=== PATIENT | male | born 1960 | race Caucasian/White ===

== ENCOUNTER 2019-12-19 08:00 | Outpatient (CLI) | payer OTHER, SELFPAY ==
--- NOTE | 2019-12-27 16:22 | SLEEP_ITS ---
Split Night Sleep Study DATE OF STUDY: 12/19/2019 ORDERING PHYSICIAN: Alie Merino M.D. REASON FOR THIS STUDY: Snoring, hypersomnolence. HISTORY: This patient is a 59-year-old male, 67 inches tall, weighing 205 pounds with a body mass index of 32.1. He has a history of loud snoring, especially on his back. He sleeps on his right side only. He has significant nasal drainage. Normal bedtime is around 12 midnight, falling asleep quickly, waking between 6 and 7 in the morning. He does have dreams at night. He does not have problems with leg kicking or restless legs symptoms. He wakes at least once at night to use the bathroom. He takes a nap on the weekends between his morning shift and his afternoon shift. 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 He has 1 cup of coffee in the morning and a soda with dinner on occasion. He has a deviated septum on the right side. He occasionally awakens from sleep feeling short of breath. He rarely awakens at night with heartburn. He rarely gasps for breath at night. He rarely sweats excessively at night. He does not have palpitations at night. He frequently falls asleep during the day occasionally and involuntarily almost never while driving. He does not have loss of muscle tone with strong emotion. He rarely has difficulty at work due to excessive sleepiness. He does not feel paralyzed on waking or falling asleep. Does not have vivid dreamlike scenes upon awakening or falling asleep and he is never afraid to go to sleep. He rarely remembers his dreams. He rarely feels sad, depressed, or anxious. He occasionally has muscular tension. He rarely notices parts of his body jerking. He rarely has leg pain at night. He does not grind his teeth at night. He rarely is bothered by pain during the day and never is awakened by pain at night. He rarely wakes up feeling stiff in the morning with sore achy muscles or pain in the neck or spine. His present work situation is satisfactory. He does have daytime fatigue. He does have some problem with libido that he attributes to his loud snoring. He estimates 6 hours of sleep at night. When he does awaken at night to use the bathroom, he is not awake for very long. MEDICAL COMORBIDITIES: Hypertension, erectile dysfunction, acid reflux, arthritis, joint pain. MEDICATIONS: 1. Metoprolol 50 mg a day. 2. Amlodipine 10 mg a day. 3. Sildenafil 100 mg as needed. 4. Omeprazole 20 mg daily .. 5. Naprosyn 220 mg daily. HABITS: Used to smoke cigarettes 20 years ago. Caffeine, 1 large coffee a day. No alcohol. DESCRIPTION OF THE STUDY: On the [place] Sleepiness Scale, his score is 12. This was conducted as a split night study using the same and multiple channel system including EOG, EEG, submental EMG, EKG, nasal and oral airflow using thermistors and nasal pressure sensors, chest and abdominal belts, body position data, and pulse oximetry. The study was scored using CMS guidelines. During the baseline portion, the recording time was 121.6 minutes. Sleep time was 116 minutes. Sleep efficiency was 95.5%. Sleep latency was short, 1.5 minutes. He was prescribed Lunesta 2 mg, but it is not clear if he took it, likely did take it at the sleep lab. It was not recorded in the tech notes. His REM latency was normal 91 minutes. He had 6 awakenings and spent 4 minutes awake after sleep onset. Sleep architecture showed 9.5% stage 1 sleep, 86.2% stage 2 sleep, no stage 3 sleep, and 4.3% stage REM. He spent 44% of this portion supine. He had 1 brief REM episode lasting 5 minutes. During the baseline portion, his apnea-hypopnea index was 28.4 per CMS guidelines. All these were obstructive events. He had 31 obstructive hypopneas in th
== END 2019-12-19 08:01 | disposition home or self-care (01) ==
LOC: ANHCSM 08:01
PROVIDERS: Visit Provider Internal Medicine Critical Care Medicine
DX: G47.10 Hypersomnia, unspecified (principal); G47.33 Obstructive sleep apnea (adult) (pediatric); J31.0 Chronic rhinitis; I10 Essential (primary) hypertension; N52.9 Male erectile dysfunction, unspecified
CPT/HCPCS: 95811

== ENCOUNTER 2020-08-07 09:15 | Outpatient (CLI) | payer OTHER, SELFPAY ==
[2020-08-07 09:39] LABS: Basophils Percent Auto 0.5 % (0.2-1.2); Eosinophils Absolute Auto 0.2 K/mm3 (0-0.3); Eosinophils Percent Auto 4.2 % (0-4.4); Hematocrit 43.2 % (42.0-52.0); Hemoglobin 14.3 g/dL (14.0-18.0); Immature Granulocyte Absolute 0.02 K/mm3 (0.00-0.031); Immature Granulocyte Percent A 0.5 % (0-0.5); Lymphocytes Absolute Auto 1.55 K/mm3 (0.9-3.2); Lymphocytes Percent Auto 35.8 % (18.3-44.2); Mean Corpuscular HGB Conc 33.1 g/dl (32-36); Mean Corpuscular Hemoglobin 28.8 pg (26-34); Mean Corpuscular Volume 86.9 fl (80-100); Mean Platelet Volume 9.5 fl (7.4-10.4); Monocytes Absolute Auto 0.4 K/mm3 (0.1-0.6); Monocytes Percent Auto 10.2 % (2.6-8.5); Neutrophils Absolute Auto 2.1 K/mm3 (1.3-6.7); Neutrophils Percent Auto 48.8 % (45.5-73.1); Platelet Count Result 252 k/mm3 (150-375); Red Blood Count 4.97 M/mm3 (4.6-6.20); Red Cell Distribution Width 13.5 % (11.5-14.5); White Blood Count 4.3 K/mm3 (4.5-10.0)
[2020-08-07 11:09] LABS: Alanine Aminotransferase 26 U/L (4-50); Albumin Level 4.3 g/dL (3.5-5.1); Alkaline Phosphatase 76 U/L (38-126); Anion Gap 8 mmol/L (8-16); Aspartate Amino Transferase 24 U/L (17-59); Bilirubin,Total 0.4 mg/dL (0.2-1.3); Blood Urea Nitrogen 18 mg/dL (9-20); Calcium 9.3 mg/dL (8.4-10.2); Carbon Dioxide 28 mmol/L (22-30); Chloride 105 mmol/L (98-107); Cholesterol 150 mg/dL (0-200); Estimated Glomerular Filt Rate > 60; Glucose 107 mg/dL (75-110); HDL Direct 45 mg/dL; Potassium 4.3 mmol/L (3.4-5.0); Sodium 141 mmol/L (137-145); Triglycerides 109 mg/dL (<150)
[2020-08-07 11:34] LABS: Erythrocyte Sedimentation Rate 5 mm/hr (0-20)
[2020-08-07 11:44] LABS: LDL Cholesterol Direct 89 mg/dL
[2020-08-07 11:55] LABS: Rheumatoid Factor < 8.6 IU/ML (<12)
[2020-08-07 12:22] LABS: Prostate Specific Antigen 1.8 ng/mL (< OR = 4.0)
[2020-08-07 12:57] LABS: Folic Acid 5.4 ng/mL (2.76->20)
== END 2020-08-07 09:16 | disposition home or self-care (01) ==
PROVIDERS: PCP Internal Medicine; Visit Provider Internal Medicine
DX: R53.83 Other fatigue (principal); I10 Essential (primary) hypertension; Z12.5 Encounter for screening for malignant neoplasm of prostate; Z00.00 Encounter for general adult medical examination without abnormal findings; M79.10 Myalgia, unspecified site
CPT/HCPCS: 36415; 80053; 80061; 82607; 82746; 84153; 84443; 85025; 85652; 86038; 86430

== ENCOUNTER 2021-01-08 14:14 | Outpatient (CLI) | payer OTHER, SELFPAY | END 2021-01-08 14:15 | disposition home or self-care (01) | LOC: ANHCOVIDVC 14:14 | PROVIDERS: PCP Internal Medicine | DX: Z23 Encounter for immunization (principal) | CPT/HCPCS: 0001A; 91300 ==

== ENCOUNTER 2021-01-29 14:23 | Outpatient (CLI) | payer OTHER, SELFPAY | END 2021-01-29 14:24 | disposition home or self-care (01) | LOC: ANHCOVIDVC 14:23 | PROVIDERS: PCP Internal Medicine | DX: Z23 Encounter for immunization (principal) | CPT/HCPCS: 0002A; 91300 ==

== ENCOUNTER 2021-05-13 10:32 | Outpatient (CLI) | payer OTHER, SELFPAY ==
--- NOTE | ~2021-05-13 | XR_ITS ---
XR lumbar spine 6V w bending DATE: 05/13/2021 10:58 INDICATION: Lumbago with sciatica TECHNIQUE: AP, lateral, coned lateral lumbosacral and bilateral oblique views and flexion and extensi on lateral views COMPARISON: 09/08/2016 MRI lumbar spine FINDINGS: There is mild anterior wedge compression fracture deformity of T12, chronic, present on 09/08/2016 MRI lumbar spine examination. No recent fracture or bone destruction is evident. The lumbar pedicles are intact. No spondylolisthes is. There is minimal anterolisthesis at L4-5 secondary to degenerative change at the apophyseal joint s. There is moderately prominent loss of interspace height at L5-S1. The sacroiliac joints are intact Multiple upper pole left renal calcified calculi. IMPRESSION: Old mild anterior wedge compression fracture deformity of T12 Osteopenia Grade 1 anterolisthesis at L4-5 due to degenerative change at the apophyseal joints Moderately prominent loss of height at L5-S1 Left nephrolithiasis Reviewed, dictated and finalized at location A. IMPRESSION: Old mild anterior wedge compression fracture deformity of T12 Osteopenia Grade 1 anterolisthesis at L4-5 due to degenerative change at the apophyseal carlyn ints Moderately prominent loss of height at L5-S1 Left nephrolithiasis
== END 2021-05-13 10:33 | disposition home or self-care (01) ==
PROVIDERS: PCP Internal Medicine; Visit Provider Physician Assistant
DX: M54.41 Lumbago with sciatica, right side (principal); N20.0 Calculus of kidney; M85.88 Other specified disorders of bone density and structure, other site; M51.36 Other intervertebral disc degeneration, lumbar region
CPT/HCPCS: 72114

== ENCOUNTER 2021-07-15 14:30 | Outpatient (RCR) | payer OTHER, SELFPAY ==
--- NOTE | 2021-06-03 15:48 | PTOPEVAL ---
PHYSICAL THERAPY EVALUATION 06-03-21 Thank you for referring Johny Cruz to [facility] for the diagnosis of lumbago, with R radicular pain. He is scheduled to be seen for therapy? 0-2 x/week for 5 weeks. Johny will be out of town for one week of this timeframe. Please review, sign, date and return this plan of care NATALIA. I agree with and certify that the following plan of care is medically necessary. Referring Physician Date Attending Provider: Jan Segovia PA-C *PT Outpatient Evaluation Document 06/03/21 14:35 YARON (Rec: 06/03/21 15:48 YARON [id number]) Outpatient Past Medical History Past Medical History Source of Past Medical History Patient Neurological History Hx Neurological Disorders No Significant History Cardiovascular History Hx Hypertension Yes: med control Respiratory History Hx Sleep Apnea Yes: CPAP Gastrointestinal History Hx Gastroesophageal Reflux Disease Yes: meds Genitourinary History Hx Kidney Stones Yes Musculoskeletal History Hx Arthritis Yes: in hands- take tylenol daily to manage Hx Back Pain Yes: off/on for years Hx Orthopedic Surgery Yes: L plantar fascia surgery; R hammer toe surgery; Hx Other Musculoskeletal Disorders Yes: wearing L wrist splint- thumb pain- to have nerve study Endocrine History Hx Endocrine Disorders No Significant History HEENT History Hx Other HEENT Disorders Yes: glasses Integumentary History Hx Skin Disorders No Significant History Evaluation Information Problem Diagnosis sciatica, radicular R LE Onset 2020 Subjective Information gradual increase in back pain; Query Text:As Reported By Patient/ low back hurt some, with Family spasms, then got worse and into R leg; had steroid pack and it helped decrease pain few days, then did more activity, and back pain returned; Diagnostic Tests X-Rays For This Problem Yes: old mild ant wedge fx T12 ;osteopenia,anteriolisthesis L 4-5;decreased disc height L5-S1 MRI For This Problem No Other Tests For This Problem No Previous Treatments Previous Treatments For This Problem no PT for back Prior Level of Function Activity Level (Last 3 Months) Occupation work at [employer]; standing, cooking, [id number] occasionally, try not Hand Dominance Right Activity of Daily Living Ability Independent Indoor/Home Trey
--- NOTE | 2021-07-17 13:22 | PCPTNOTE ---
PHYSICAL THERAPY DISCHARGE 07-17-21 Attending Provider: GALLITO MayfieldC Patient:Johny Gamezpmitra Date of :1960 Johny has received a total of 10 PT sessions, from June 03 to today, for the diagnosis of lumbago with R sciatica. He called today and canceled his reevaluation appointment, left a message that he was doing well and did not need any more therapy; will continue to do his exercises. Therefore, he will be discharged at this time. The goals were not addressed. Please review, sign, date and return this discharge summary NATALIA. I have been updated about the patient's current status and I agree with discharge from the above service at this time. Referring Physician Date
== END 2021-07-17 17:44 | disposition home or self-care (01) ==
LOC: ANHPT 14:30
PROVIDERS: PCP Internal Medicine; Visit Provider Physician Assistant
DX: M54.41 Lumbago with sciatica, right side (principal)
CPT/HCPCS: 97014; 97110; 97140; 97161; G0283

== ENCOUNTER 2021-07-22 09:26 | Outpatient (CLI) | payer OTHER, SELFPAY ==
--- NOTE | 2021-07-22 11:30 | NEURO_ITS ---
Impression: # Complains of numbness of left hand. # Bilateral Carpal Tunnel Syndrome, left more than right. # No ulnar neuropathy. # Normal needle/EMG exam. Nerve Conduction Studies Anti Sensory Summary Table Stim Site NR Peak (ms) P-T Amp (?V) Site1 Site2 Delta-P (ms) Dist (cm) Piyush (m/s) Left Median Anti Sensory (2-3nd Digit) Wrist 4.2 26.6 Wrist 2-3nd Digit 4.2 14.0 33 Wrist 4.4 23.0 Wrist 2-3nd Digit 4.2 14.0 33 Right Median Anti Sensory (2-3nd Digit) Wrist 4.1 10.7 Wrist 2-3nd Digit 4.1 14.0 34 Wrist 3.9 18.6 Wrist 2-3nd Digit 4.1 14.0 34 Left Radial Anti Sensory (Base 1st Digit) Wrist 2.2 15.7 Wrist Base 1st Digit 2.2 0.0 Right Radial Anti Sensory (Base 1st Digit) Wrist 2.7 20.7 Wrist Base 1st Digit 2.7 0.0 Left Ulnar Anti Sensory (5th Digit) Wrist 2.4 42.9 Wrist 5th Digit 2.4 14.0 58 Right Ulnar Anti Sensory (5th Digit) Wrist 2.4 32.8 Wrist 5th Digit 2.4 14.0 58 Motor Summary Table Stim Site NR Onset (ms) O-P Amp (mV) Site1 Site2 Delta-0 (ms) Dist (cm) Piyush (m/s) Left Median Motor (Abd Poll Brev) Wrist 4.8 3.2 Elbow Wrist 4.9 28.0 57 Elbow 9.7 3.1 Right Median Motor (Abd Poll Brev) Wrist 3.9 3.0 Elbow Wrist 4.7 27.0 57 Elbow 8.6 2.0 Left Ulnar Motor (Abd Dig Minimi) Wrist 2.6 5.5 A Elbow Wrist 4.6 29.0 63 A Elbow 7.2 3.9 Right Ulnar Motor (Abd Dig Minimi) Wrist 2.7 4.6 A Elbow Wrist 4.8 29.0 60 A Elbow 7.5 3.6 F Wave Studies NR F-Lat (ms) L-R F-Lat (ms) Left Median (Mrkrs) (Abd Poll Brev) 29.73 1.72 Right Median (Mrkrs) (Abd Poll Brev) 28.01 1.72 Left Ulnar (Mrkrs) (Abd Dig Min) 28.00 0.64 Right Ulnar (Mrkrs) (Abd Dig Min) 27.36 0.64 EMG Side Muscle Nerve Root Ins Act Fibs Amp Dur Recrt Comment Right 1stDorInt Ulnar C8-T1 Nml Nml Nml Nml Nml Right Ext Indicis Radial (Post Int) C7-8 Nml Nml Nml Nml Nml Right Ext Digitorum Radial (Post Int) C7-8 Nml Nml Nml Nml Nml Right BrachioRad Radial C5-6 Nml Nml Nml Nml Nml Right PronatorTeres Median C6-7 Nml Nml Nml Nml Nml Right Abd Poll Brev Median C8-T1 Nml Nml Nml Nml Nml Left 1stDorInt Ulnar C8-T1 Nml Nml Nml Nml Nml Left Ext Indicis Radial (Post Int) C7-8 Nml Nml Nml Nml Nml Left Ext Digitorum Radial (Post Int) C7-8 Nml Nml Nml Nml Nml Left BrachioRad Radial C5-6 Nml Nml Nml Nml Nml Left PronatorTeres Median C6-7 Nml Nml Nml Nml Nml Left Abd Poll Brev Median C8-T1 Nml Nml Nml Nml Nml Right ABD Dig Min Ulnar C8-T1 Nml Nml Nml Nml Nml MTDD
== END 2021-07-22 09:27 | disposition home or self-care (01) ==
PROVIDERS: PCP Internal Medicine; Visit Provider Physician Assistant
DX: R20.0 Anesthesia of skin (principal); R20.2 Paresthesia of skin; G56.03 Carpal tunnel syndrome, bilateral upper limbs
CPT/HCPCS: 95886; 95911

== ENCOUNTER 2022-07-22 15:54 | Outpatient (CLI) | payer OTHER, SELFPAY ==
--- NOTE | ~2022-07-22 | XR_ITS ---
EXAM: XR knee RT 3V DATE: 07/22/2022 16:18 HISTORY: M25.561 - Pain in right knee . COMPARISON: None available. FINDINGS: Decreased mineralization. No fracture or dislocation. No lytic or blastic lesion. Mild med ial joint space narrowing. Mild tricompartmental osteophytosis. Moderate volume knee joint fluid. No erosion or periosteal change. Soft tissues within normal limits. IMPRESSION: Mild tricompartmental osteoarthritis. Moderate right knee joint effusion. Reviewed, dictated and finalized at location K. IMPRESSION: Mild tricompartmental osteoarthritis. Moderate right knee joint eff usion.
== END 2022-07-22 15:55 | disposition home or self-care (01) ==
LOC: ANHIMG 15:57
PROVIDERS: PCP Internal Medicine; Visit Provider Physician Assistant
DX: M25.561 Pain in right knee (principal); M17.11 Unilateral primary osteoarthritis, right knee; M25.461 Effusion, right knee
CPT/HCPCS: 73562

== ENCOUNTER 2022-11-02 10:21 | Emergency (ER) | payer OTHER, SELFPAY ==
[2022-11-02 12:06] VITALS: BP 150/87; PULSE 70; RESP 20; TEMP 36.2; O2SAT 99
--- NOTE | 2022-11-02 12:56 | ED.EYEPROB ---
HPI - Eye Problem General Chief complaint: Eye Problems Stated complaint: lt eye irritation Time Seen by Provider: 11/02/22 12:56 Source: patient Mode of arrival: ambulatory Limitations: no limitations History of Present Illness HPI Narrative: 61-year-old male presents with complaint of erythema, drainage, itching to left eye since yesterday. He also reports that he has had a yellowish spot to the white of his eye for a long time . Not bothering him but wanted to get it looked at while he was here. All systems reviewed and negative except as noted above. Related Data Home Medications Medication Instructions Recorded Confirmed omeprazole 20 mg capsule,delayed 20 mg PO DAILY 11/27/19 11/02/22 release naproxen sodium 220 mg capsule 220 mg PO BID PRN Pain 11/28/19 11/02/22 Allergies Allergy/AdvReac Type Severity Reaction Status Date / Time No Known Allergies Allergy Unknown Verified 11/02/22 12:35 Review of Systems Review of Systems: CONSTITUTIONAL: Denies fever, chills, or sweats. EYES: Denies visual changes. Reports redness, drainage, itching left eye. ENT: Denies rhinorrhea, congestion, sore throat, or otalgia. CARDIOVASCULAR: Denies chest pain, palpitations, or edema. RESPIRATORY: Denies cough or dyspnea. GASTROINTESTINAL: Denies abdominal pain, nausea, vomiting, or diarrhea. GENITOURINARY: Denies dysuria or hematuria. SKIN: Denies rash or itching. MUSCULOSKELETAL: Denies back pain, joint pain, or myalgia. NEUROLOGIC: Denies headache, numbness, or weakness. PSYCHIATRIC: Denies anxiety or depression. All other systems reviewed are negative, except as documented in HPI. [facility] Past Medical History Medical History (Updated 11/02/22 @ 13:06 by Barbie Bartlett NP) Degenerative joint disease of knee Effusion of knee joint Essential hypertension Exposure to COVID-19 virus H/O gastroesophageal reflux (GERD) Joint stiffness of hand Kidney stone Myalgia Obesity (BMI 30.0-34.9) Obstructive sleep apnea Osteoarthritis Plantar fascial fibromatosis of left foot Rhinitis Right knee pain Right-sided low back pain with sciatica Surgical History Surgical History H/O skin graft Family History Family History (Updated 09/16/22 @ 12:51 by NADJA Schumacher) Other Asthma Hypertension Social History Social History (Updated 09/16/22 @ 12:52 by NADJA Schumacher) Smoking packs per day: 1 Smoking cigarettes per day: 20.0 Years smoked: 26 Smoking pack-years: 26.00 Smoking status: Former smoker Tobacco type: cigarettes Second hand tobacco smoke exposure: No Smoking end date: 12/01/99 Additional smoking assessment comments: 1 pack a day for 26 years Alcohol intake: former Substance use: former 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 There is no relevant family history pertinent to the presenting complaint. Exam Narrative: GENERAL: This is a well-nourished, well-developed patient, in no apparent distress. HEAD: normocephalic, atraumatic. EYES: PERRL. Sclera and conjunctiva Erythematous. yellowish drainage noted. Yellowish lesion to inner aspect of left eye on the sclera is a pinguecula. Vision is grossly intact. EARS: External ears normal NOSE: External nose normal NECK: Neck supple, non-tender without lymphadenopathy, masses or thyromegaly. CARDIOVASCULAR: Regular rate and rhythm without murmurs, gallops, or rubs. RESPIRATORY: Clear to auscultation. Breath sounds equal bilaterally. No wheezes, rales, or rhonchi. SKIN: warm, Dry, intact with no suspicious lesions or rash, good texture and turgor. NEURO: awake, alert, and oriented to person, place and time. There were no obvious focal neurologic abnormalities. EX
== END 2022-11-02 13:07 | disposition home or self-care (01) ==
PROVIDERS: Emergency Provider Nurse Practitioner Family; PCP Internal Medicine
DX: H10.32 Unspecified acute conjunctivitis, left eye (principal); H11.152 Pinguecula, left eye; Z87.891 Personal history of nicotine dependence; I10 Essential (primary) hypertension; K21.9 Gastro-esophageal reflux disease without esophagitis; M19.90 Unspecified osteoarthritis, unspecified site; E66.9 Obesity, unspecified; Z68.31 Body mass index [BMI] 31.0-31.9, adult
CPT/HCPCS: 99213; G0463

== ENCOUNTER 2023-04-07 08:48 | Outpatient (CLI) | payer OTHER, SELFPAY ==
[2023-04-07 09:28] LABS: Basophils Percent Auto 0.8 % (0.2-1.2); Eosinophils Absolute Auto 0.2 K/mm3 (0-0.3); Eosinophils Percent Auto 3.4 % (0-4.4); Hematocrit 40.9 % (42.0-52.0); Hemoglobin 13.5 g/dL (14.0-18.0); Immature Granulocyte Absolute 0.04 K/mm3 (0.00-0.031); Immature Granulocyte Percent A 0.8 % (0-0.5); Lymphocytes Absolute Auto 1.45 K/mm3 (0.9-3.2); Lymphocytes Percent Auto 30.5 % (18.3-44.2); Mean Corpuscular Hemoglobin 29.2 pg (26-34); Mean Corpuscular Volume 88.3 fl (80-100); Mean Platelet Volume 9.1 fl (7.4-10.4); Monocytes Absolute Auto 0.6 K/mm3 (0.1-0.6); Monocytes Percent Auto 12.6 % (2.6-8.5); Neutrophils Absolute Auto 2.5 K/mm3 (1.3-6.7); Neutrophils Percent Auto 51.9 % (45.5-73.1); Platelet Count Result 318 k/mm3 (150-375); Red Blood Count 4.63 M/mm3 (4.6-6.20); Red Cell Distribution Width 13.2 % (11.5-14.5); White Blood Count 4.8 K/mm3 (4.5-10.0)
[2023-04-07 10:02] LABS: Alanine Aminotransferase 32 U/L (6-50); Albumin Level 4.2 g/dL (3.5-5.1); Alkaline Phosphatase 86 U/L (38-126); Anion Gap 6 mmol/L (8-16); Aspartate Amino Transferase 29 U/L (17-59); Bilirubin,Total 0.5 mg/dL (0.2-1.3); Blood Urea Nitrogen 27 mg/dL (9-20); Calcium 8.8 mg/dL (8.4-10.2); Carbon Dioxide 29 mmol/L (22-30); Chloride 107 mmol/L (98-107); Cholesterol 147 mg/dL (0-200); Estimated Glomerular Filt Rate 56; Glucose 104 mg/dL (65-110); HDL Direct 44 mg/dL; LDL Cholesterol Direct 74 mg/dL; Potassium 3.8 mmol/L (3.4-5.0); Sodium 142 mmol/L (137-145); Triglycerides 113 mg/dL (<150)
[2023-04-07 10:35] LABS: Prostate Specific Antigen 2.4 ng/mL (< OR = 4.0)
[2023-04-13 14:53] LABS: Testosterone Free 63.5 pg/mL (35.0-155.0); Testosterone Total 369 ng/dL (250-1100)
== END 2023-04-07 08:49 | disposition home or self-care (01) ==
PROVIDERS: PCP Physician Assistant; Visit Provider Physician Assistant
DX: Z00.00 Encounter for general adult medical examination without abnormal findings (principal); Z12.5 Encounter for screening for malignant neoplasm of prostate; N52.9 Male erectile dysfunction, unspecified
CPT/HCPCS: 36415; 80053; 80061; 82607; 82746; 84153; 84402; 84403; 84443; 85025; G0103

== ENCOUNTER 2023-06-30 00:39 | Day surgery (SDC) | payer OTHER, SELFPAY ==
[2023-06-15 15:26] VITALS: BMI 31.4
--- NOTE | 2023-06-29 13:43 | WPDANESEPPF ---
Anes - Initial Pre Proc Eval Procedure: Operation Date: 06/30/23 10:30 Proposed Procedures p Colonoscopy - Omari Lennon MD Date/Time: 06/29/23 13:43 Surgeon: Omari Lennon MD Pre Op Diagnosis: hx of colon polyps Patient Data Age: 62 Gender: M Height: 1.7 m Weight: 91 kg Allergies Allergy/AdvReac Type Severity Reaction Status Date / Time No Known Allergies Allergy Unknown Verified 06/30/23 08:58 Home Medications Medication Instructions Recorded Confirmed Type omeprazole 20 mg capsule,delayed 20 mg PO DAILY 11/27/19 06/15/23 History release acetaminophen 650 mg 650 mg PO DAILY 11/02/22 06/15/23 History tablet,extended release tadalafil 20 mg tablet 20 mg PO DAILY PRN sexual activity 03/30/23 06/15/23 Rx #8 tabs amlodipine 10 mg tablet 10 mg PO DAILY #90 tabs 05/18/23 06/15/23 Rx metoprolol succinate 50 mg 50 mg PO DAILY #90 tabs 05/18/23 06/15/23 Rx tablet,extended release 24 hr Patient hx anesthesia problems: none Family hx anesthesia problems: none Results Review: All pre-operative results and documents have been reviewed as part of the pre-operative evaluation. [facility] Past Medical History Medical History Degenerative joint disease of knee Effusion of knee joint Essential hypertension Exposure to COVID-19 virus H/O gastroesophageal reflux (GERD) Joint stiffness of hand Kidney stone Myalgia Obesity (BMI 30.0-34.9) Obstructive sleep apnea Osteoarthritis Plantar fascial fibromatosis of left foot Rhinitis Right knee pain Right-sided low back pain with sciatica Surgical History Surgical History H/O skin graft Family History Family History Other Asthma Hypertension Social History Social History Smoking packs per day: 1 Smoking cigarettes per day: 20.0 Years smoked: 26 Smoking pack-years: 26.00 Smoking status: Former smoker Tobacco type: cigarettes Second hand tobacco smoke exposure: No Smoking end date: 12/01/99 Additional smoking assessment comments: 1 pack a day for 26 years Alcohol intake: never Substance use: never Substance use type: does not use Living arrangements: with family 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 Informed Consent: The patient's anesthetic plan and its attendant risks and benefits were discussed with the patient/family/POA. Questions were solicited and answers provided to the satisfaction of the patient/family/POA.
--- NOTE | 2023-06-29 15:46 | P.HP_ITS ---
History of Present Illness History of Present Illness Consent: Risks, benefits, and alternatives have been discussed and questions answered. Patient agrees to proceed with procedure. Chief complaint: hx of colon polyps Narrative: Johny Cruz is a 62 year old male who was referred for colon cancer screening. He has had numerous polyps removed in the past, including for tubular adenomas that were removed when he had his last colonoscopy about 4 years ago. Review of Systems Review of Systems: All systems reviewed & are unremarkable except as noted in HPI and below PMFSH Past Medical History Medical History Degenerative joint disease of knee Effusion of knee joint Essential hypertension Exposure to COVID-19 virus H/O gastroesophageal reflux (GERD) Joint stiffness of hand Kidney stone Myalgia Obesity (BMI 30.0-34.9) Obstructive sleep apnea Osteoarthritis Plantar fascial fibromatosis of left foot Rhinitis Right knee pain Right-sided low back pain with sciatica Surgical History Surgical History H/O skin graft Family History Family History Other Asthma Hypertension Social History Social History Smoking packs per day: 1 Smoking cigarettes per day: 20.0 Years smoked: 26 Smoking pack-years: 26.00 Smoking status: Former smoker Tobacco type: cigarettes Second hand tobacco smoke exposure: No Smoking end date: 12/01/99 Additional smoking assessment comments: 1 pack a day for 26 years Alcohol intake: never Substance use: never Substance use type: does not use Living arrangements: with family 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 [employer] Gender identity (if verbalized by the patient): Male Spiritual care concerns: No Meds Home Medications and Allergies Home Medications Medication Instructions Recorded Confirmed Type omeprazole 20 mg capsule,delayed 20 mg PO DAILY 11/27/19 06/15/23 History release acetaminophen 650 mg 650 mg PO DAILY 11/02/22 06/15/23 History tablet,extended release tadalafil 20 mg tablet 20 mg PO DAILY PRN sexual activity 03/30/23 06/15/23 Rx #8 tabs amlodipine 10 mg tablet 10 mg PO DAILY #90 tabs 05/18/23 06/15/23 Rx metoprolol succinate 50 mg 50 mg PO DAILY #90 tabs 05/18/23 06/15/23 Rx tablet,extended release 24 hr Allergies Allergy/AdvReac Type Severity Reaction Status Date / Time No Known Allergies Allergy Unknown Verified 06/30/23 08:58 Exam Const: General: alert Orientation/consciousness: patient oriented x3 Resp: Auscultation: clear to auscultation bilaterally Cardio: Rhythm: regular rhythm GI: GI Palp: Yes Soft to palpation and No Tenderness to palpation present (GI) Neuro: General: patient oriented x3 Assessment and Plan Assessment and plan (1) Colon cancer screening: Code(s): Z12.11 - Encounter for screening for malignant neoplasm of colon Status: Acute Assessment and Plan: Colonoscopy with possible biopsy or polypectomy or cautery or injection of substances.
[2023-06-30 08:59] VITALS: BP 138/86; PULSE 66; RESP 18; TEMP 36.2; O2SAT 98
[2023-06-30] MEDS: LACTATED RINGERS 1,000 ML 150 ML IV CONT (09:06)
[2023-06-30 10:30] VITALS: BP 159/100; PULSE 63; RESP 21; O2SAT 98
[2023-06-30 10:40] VITALS: BP 161/94; PULSE 61; RESP 20; O2SAT 98
[2023-06-30 10:50] VITALS: BP 147/84; PULSE 60; RESP 20; O2SAT 100
== END 2023-06-30 11:11 | disposition home or self-care (01) ==
PROVIDERS: PCP Physician Assistant; Visit Provider Internal Medicine Gastroenterology
PROC: 0DJD8ZZ Inspection of Lower Intestinal Tract, Via Natural or Artificial Opening Endoscopic (ICD-10-PCS; CPT 45378; principal; 2023-06-30 10:30)
DX: Z12.11 Encounter for screening for malignant neoplasm of colon (principal); K57.30 Diverticulosis of large intestine without perforation or abscess without bleeding; D12.3 Benign neoplasm of transverse colon; D12.5 Benign neoplasm of sigmoid colon; I10 Essential (primary) hypertension; K21.9 Gastro-esophageal reflux disease without esophagitis; G47.33 Obstructive sleep apnea (adult) (pediatric); Z87.891 Personal history of nicotine dependence; E66.9 Obesity, unspecified; Z68.31 Body mass index [BMI] 31.0-31.9, adult
CPT/HCPCS: 45385; 88305; J2704; J7120

== ENCOUNTER 2023-07-07 09:14 | Outpatient (RCR) | payer OTHER, SELFPAY ==
[2023-07-07 10:37] LABS: Alanine Aminotransferase 25 U/L (6-50); Albumin Level 4.1 g/dL (3.5-5.1); Alkaline Phosphatase 81 U/L (38-126); Aspartate Amino Transferase 26 U/L (17-59); Bilirubin,Total 0.5 mg/dL (0.2-1.3)
== END 2023-10-05 23:59 | disposition home or self-care (01) ==
LOC: ANHLAB 09:14
PROVIDERS: PCP Physician Assistant; Visit Provider Dermatology
DX: Z51.81 Encounter for therapeutic drug level monitoring (principal); Z79.899 Other long term (current) drug therapy
CPT/HCPCS: 36415; 80076

== ENCOUNTER 2023-10-07 08:35 | Emergency (ER) | payer OTHER, SELFPAY ==
--- NOTE | ~2023-10-07 | XR_ITS ---
EXAMINATION: XR chest 2V 10/07/2023 09:53 INDICATION: Dizziness PROCEDURE: 2 view chest COMPARISON: No prior studies for comparison. FINDINGS: The lungs are clear. The cardiomediastinal silhouette is within normal limits. There are no pleural effusions. There is no pneumothorax suspected. IMPRESSION: 1: NO ACUTE CARDIOPULMONARY DISEASE. Reviewed, dictated and finalized at location L. DESIGN ENGINEER
[2023-10-07 08:40] VITALS: BP 156/92; PULSE 62; RESP 14; TEMP 36.6; O2SAT 97
--- NOTE | 2023-10-07 09:14 | ECG_ITS ---
Measurements Intervals [place] Rate: 56 P: 20 TN: 149 QRS: 0 QRSD: 93 T: 1 QT: 424 QTc: 411 Interpretive Statements SINUS BRADYCARDIA LEFT VENTRICULAR HYPERTROPHY MINIMAL Q WAVES- HIGH LATERAL LEADS BORDERLINE ECG NO PREVIOUS ECG AVAILABLE FOR COMPARISON Electronically Signed On 10-07-2023 10:30:58 TOOL ANALYST by Lito Acuña D.O.
[2023-10-07 09:48] LABS: Basophils Percent Auto 0.7 % (0.2-1.2); Eosinophils Absolute Auto 0.1 K/mm3 (0-0.3); Eosinophils Percent Auto 3.1 % (0-4.4); Hematocrit 41.7 % (42.0-52.0); Hemoglobin 13.3 g/dL (14.0-18.0); Immature Granulocyte Absolute 0.11 K/mm3 (0.00-0.031); Immature Granulocyte Percent A 2.5 % (0-0.5); Lymphocytes Absolute Auto 0.87 K/mm3 (0.9-3.2); Lymphocytes Percent Auto 19.4 % (18.3-44.2); Mean Corpuscular HGB Conc 31.9 g/dl (32-36); Mean Corpuscular Hemoglobin 28.1 pg (26-34); Mean Corpuscular Volume 88.2 fl (80-100); Mean Platelet Volume 9.4 fl (7.4-10.4); Monocytes Absolute Auto 0.4 K/mm3 (0.1-0.6); Monocytes Percent Auto 9.6 % (2.6-8.5); Neutrophils Absolute Auto 2.9 K/mm3 (1.3-6.7); Neutrophils Percent Auto 64.7 % (45.5-73.1); Platelet Count Result 264 k/mm3 (150-375); Red Blood Count 4.73 M/mm3 (4.6-6.20); Red Cell Distribution Width 13.2 % (11.5-14.5); White Blood Count 4.5 K/mm3 (4.5-10.0)
[2023-10-07 09:58] LABS: Magnesium 2.2 mg/dL (1.6-2.3)
[2023-10-07 09:59] LABS: Alanine Aminotransferase 35 U/L (6-50); Albumin Level 4.3 g/dL (3.5-5.1); Alkaline Phosphatase 94 U/L (38-126); Anion Gap 9 mmol/L (8-16); Aspartate Amino Transferase 27 U/L (17-59); Bilirubin,Total 0.4 mg/dL (0.2-1.3); Blood Urea Nitrogen 24 mg/dL (9-20); Calcium 9.2 mg/dL (8.4-10.2); Carbon Dioxide 26 mmol/L (22-30); Chloride 103 mmol/L (98-107); Estimated CRCL calculation 49 ml/min; Estimated Glomerular Filt Rate 47; Glucose 127 mg/dL (65-110); Potassium 4.4 mmol/L (3.4-5.0); Sodium 138 mmol/L (137-145)
[2023-10-07] MEDS: MECLIZINE HCL 25 MG TABLET PO (10:00)
[2023-10-07 10:01] VITALS: BP 146/86; BP 155/90; PULSE 56; PULSE 57
[2023-10-07] MEDS: ONDANSETRON INJ 4 MG/2 ML VIAL IV PUSH (10:01)
[2023-10-07] MEDS: SODIUM CHLORIDE 0.9% IV 500 ML 999 ML IV CONT ×2 (10:01→10:07)
[2023-10-07 10:02] VITALS: BP 160/92; PULSE 56
--- NOTE | 2023-10-07 10:05 | ED.DIZZY ---
HPI - Dizziness General Chief Complaint: Dizziness Stated Complaint: DIZZINESS THIS AM Time Seen by Provider: 10/07/23 09:20 Source: patient Mode of arrival: ambulatory Limitations: no limitations History of Present Illness HPI Narrative: This is a 62 year old male that presents to the ER for dizziness. Ongoing since this morning. Reports room spinning dizziness. Worsened with certain position changes. Reports nausea. Denies vision changes or vomiting. Related Data Home Medications Medication Instructions Recorded Confirmed omeprazole 20 mg capsule,delayed 20 mg PO DAILY 11/27/19 06/15/23 release acetaminophen 650 mg 650 mg PO DAILY 11/02/22 06/15/23 tablet,extended release Allergies Allergy/AdvReac Type Severity Reaction Status Date / Time No Known Allergies Allergy Unknown Verified 06/30/23 08:58 Review of Systems Review of Systems: CONSTITUTIONAL: Denies fever EYES: Denies visual changes CARDIOVASCULAR: Denies chest pain RESPIRATORY: Denies dyspnea. GASTROINTESTINAL: Denies vomiting NEUROLOGIC: Denies numbness, or weakness. All systems reviewed & are unremarkable except as noted in HPI and below PMFSH Past Medical History Medical History Degenerative joint disease of knee Effusion of knee joint Essential hypertension Exposure to COVID-19 virus H/O gastroesophageal reflux (GERD) Joint stiffness of hand Kidney stone Myalgia Obesity (BMI 30.0-34.9) Obstructive sleep apnea Osteoarthritis Plantar fascial fibromatosis of left foot Rhinitis Right knee pain Right-sided low back pain with sciatica Surgical History Surgical History H/O skin graft Family History Family History Other Asthma Hypertension Social History Social History Smoking packs per day: 1 Smoking cigarettes per day: 20.0 Years smoked: 26 Smoking pack-years: 26.00 Smoking status: Former smoker Tobacco type: cigarettes Second hand tobacco smoke exposure: No Smoking end date: 12/01/99 Additional smoking assessment comments: 1 pack a day for 26 years Alcohol intake: never Substance use: never Substance use type: does not use Living arrangements: with family 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 HEAD: Normocephalic, atraumatic. EYES: PERRLA and EOMI. ENT: Nares clear, no rhinorrhea or epistaxis. Mucous membranes moist. Oropharynx without tonsillar hypertrophy exudate or other lesions. Bilateral TMs pearly black non-bulging NECK: Supple. No adenopathy or masses. No JVD CHEST: Clear to auscultation. No respiratory distress. No wheezes rales or rhonchi HEART: Regular rate and rhythm. No murmur heard. Normal peripheral pulses. EXTREMITIES: Normal range of motion. No edema. Strength equal in bilateral upper and lower extremities (5/5) SKIN: Warm, dry, no rash. NEURO: No focal deficits. Alert and oriented x3. Cranial nerves 2-12 grossly intact. Normal [id number] PSYCH: Normal mood and affect Course Course Emergency Course: Patient with relief after IV fluids and meclizine. Ambulatory with a steady gait. Updated on his workup. Ready for discharge Vital Signs Vital signs: Vital Signs Temperature 97.9 F 10/07/23 08:40 Pulse Rate 62 10/07/23 08:40 Respiratory Rate 14 10/07/23 08:40 Blood Pressure 156/92 H 10/07/23 08:40 Pulse Oximetry 97 10/07/23 08:40 Temperature 97.9 F 10/07/23 08:40 Pulse Rate 56 L 10/07/23 10:02 Respiratory Rate 14 10/07/23 08:40 Blood Pressure 160/92 H 10/07/23 10:02 Pulse Oximetry 97 10/07/23 08:40 MDM
== END 2023-10-07 11:44 | disposition home or self-care (01) ==
PROVIDERS: Emergency Provider Physician Assistant; PCP Physician Assistant
DX: R42 Dizziness and giddiness (principal); I10 Essential (primary) hypertension; M17.9 Osteoarthritis of knee, unspecified; K21.9 Gastro-esophageal reflux disease without esophagitis; G47.33 Obstructive sleep apnea (adult) (pediatric); E66.9 Obesity, unspecified; Z68.32 Body mass index [BMI] 32.0-32.9, adult; Z87.442 Personal history of urinary calculi; Z87.891 Personal history of nicotine dependence; R00.1 Bradycardia, unspecified; I51.7 Cardiomegaly
CPT/HCPCS: 36415; 71046; 80053; 83735; 85025; 93005; 96361; 96374; 99284; A9270; J2405; J7040

== ENCOUNTER 2023-11-30 14:40 | Outpatient (RCR) | payer OTHER, SELFPAY ==
--- NOTE | 2023-11-30 15:28 | OPREHPOC ---
Outpatient Therapy Plan of Care This is a Multidisciplinary Plan of Care that may contain components documented by all disciplines (PT, OT, and ST.) PT Problem 1 PT Problem #1 Knowledge Deficit PT Goal 1 Goal * indep with HEP PT Problem 2 PT Problem #2 Impaired Vestibular Syste PT Goal 1 Goal pt not report any vestibular issues with: 1* standing and looking up to top shelf 2* rolling in bed to R 3* rolling in bed to L 4* further vestibular testing as indicated
--- NOTE | 2023-11-30 15:29 | PTOPEVAL1 ---
Assessment and note entered by Gail Martinez, PT Evaluation Information Assessment Status Evaluation Diagnosis BPPV Onset Oct 2023 Subjective Information woke up in AM with dizziness--roll over in bed and head and room was spinning, was staggering around room, nausea; lasted entire day, to ER; they cleared out ears, had fluid in ears, then started feeling better; took antihistamines and meclazine- better; symptoms: room spinning, last few seconds, clear when hold still increase: head up, look to R, reach up high shelf decrease: hold still, focus eyes on something PMH: vision OK- wear bifocal glasses, no sinus issues; on meds for HTN; no cervical pain; no hearing issues, but have itching and waxy ears; WORK: [employer]-- busy, on feet and going all shift; Reported Pain Level Pain Score 0: Self Report Additional Pain Score Comments have history of back pain Assessment PT Clinical Summary Johny has the diagnosis of BPPV. He reports awakening with dizziness and went to ER. It is less now but still present. Vestibular testing: Positive for anterior/ posterior canal BPPV. [place] Hallpike to L: little off, no nystagmus, cleared few seconds [place] pike to R: slight nystagmus, X on wall moving and off balance, cleared 42 seconds performed Eply: rep 1, cleared 42 seconds; rep 2 - no nystagmus, few seconds of unsteady; rep 3- no unsteadiness at all. Skilled PT services are indicated for vestibular therapy and treatment of BPPV. Education for safety and vestibular system. Plan of Care Interventions Neuro Re-education,Patient Education PT Services Indicated Yes Treatment Frequency and 1-2x/week for 5 weeks, depending upon severity of Duration his vestibular symptoms These treatments will address the o
--- NOTE | 2023-12-30 13:21 | PTOPDC ---
Assessment and note entered by Gail Martinez, PT Discharge Information Assessment Status Discharge - Pt Not Present Diagnosis BPPV Onset Oct 2023 Assessment PT Clinical Summary Johny was seen for the initial evaluation on Nov 30 for BPPV. Eply was performed on that date. He called and stated he was doing well and did not need any further therapy. Discharge PT services. The goals were not addressed. Plan of Care PT Services Indicated No
== END 2023-12-30 14:25 | disposition home or self-care (01) ==
LOC: ANHPT 14:40
PROVIDERS: PCP Internal Medicine; Visit Provider Physician Assistant
DX: H81.11 Benign paroxysmal vertigo, right ear (principal)
CPT/HCPCS: 95992; 97161; 97530

== ENCOUNTER 2024-04-11 08:51 | Outpatient (CLI) | payer OTHER, SELFPAY ==
[2024-04-11 09:25] LABS: Basophils Percent Auto 0.5 % (0.2-1.2); Eosinophils Absolute Auto 0.1 K/mm3 (0-0.3); Eosinophils Percent Auto 2.4 % (0-4.4); Hematocrit 39.8 % (42.0-52.0); Immature Granulocyte Absolute 0.03 K/mm3 (0.00-0.031); Immature Granulocyte Percent A 0.8 % (0-0.5); Lymphocytes Absolute Auto 0.98 K/mm3 (0.9-3.2); Lymphocytes Percent Auto 26.3 % (18.3-44.2); Mean Corpuscular HGB Conc 32.7 g/dl (32-36); Mean Corpuscular Hemoglobin 28.9 pg (26-34); Mean Corpuscular Volume 88.4 fl (80-100); Mean Platelet Volume 9.7 fl (7.4-10.4); Monocytes Absolute Auto 0.7 K/mm3 (0.1-0.6); Monocytes Percent Auto 19.3 % (2.6-8.5); Neutrophils Absolute Auto 1.9 K/mm3 (1.3-6.7); Neutrophils Percent Auto 50.7 % (45.5-73.1); Platelet Count Result 245 k/mm3 (150-375); Red Cell Distribution Width 13.8 % (11.5-14.5); White Blood Count 3.7 K/mm3 (4.5-10.0)
[2024-04-11 09:37] LABS: Alanine Aminotransferase 29 U/L (6-50); Albumin Level 4.2 g/dL (3.5-5.1); Alkaline Phosphatase 76 U/L (38-126); Anion Gap 5 mmol/L (4-12); Aspartate Amino Transferase 29 U/L (17-59); Bilirubin,Total 0.5 mg/dL (0.2-1.3); Blood Urea Nitrogen 22 mg/dL (9-20); Calcium 8.9 mg/dL (8.4-10.2); Carbon Dioxide 26 mmol/L (22-30); Chloride 110 mmol/L (98-107); Cholesterol 146 mg/dL (0-200); Estimated Glomerular Filt Rate > 60; Glucose 113 mg/dL (65-110); HDL Direct 42 mg/dL; Potassium 3.8 mmol/L (3.4-5.0); Sodium 141 mmol/L (137-145); Triglycerides 114 mg/dL (<150)
[2024-04-11 09:48] LABS: LDL Cholesterol Direct 81 mg/dL
[2024-04-11 10:08] LABS: Prostate Specific Antigen 2.2 ng/mL (< OR = 4.0)
[2024-04-11 10:20] LABS: Hemoglobin A1C 5.4 % (<5.7)
[2024-04-11 10:43] LABS: Folic Acid 7.3 ng/mL (2.76->20)
== END 2024-04-11 08:52 | disposition home or self-care (01) ==
LOC: ANHLAB 08:53
PROVIDERS: PCP Internal Medicine; Visit Provider Physician Assistant
DX: Z00.00 Encounter for general adult medical examination without abnormal findings (principal); E53.8 Deficiency of other specified B group vitamins; R73.9 Hyperglycemia, unspecified; Z12.5 Encounter for screening for malignant neoplasm of prostate
CPT/HCPCS: 36415; 80053; 80061; 82607; 82746; 83036; 84153; 84443; 85025; G0103

== ENCOUNTER 2024-08-17 07:58 | Outpatient (CLI) | payer OTHER, SELFPAY | END 2024-08-17 07:59 | disposition home or self-care (01) | LOC: ANHAUDIO 08:00 | PROVIDERS: PCP Internal Medicine; Visit Provider Internal Medicine | DX: H90.3 Sensorineural hearing loss, bilateral (principal) | CPT/HCPCS: 92557; 92567 ==

== ENCOUNTER 2025-01-22 10:13 | Outpatient (CLI) | payer MEDICARE, SELFPAY ==
--- NOTE | ~2025-01-22 | XR_ITS ---
Right Hand Technique: PA, oblique, and lateral views were obtained. Clinical History: Arthritis Findings: No acute fracture or dislocation is seen. Osseous alignment is anatomic. There is moderate degenerative change of the interphalangeal joint of the thumb. There is advanced degenerative change of the fifth DIP joint.. Soft tissues are unremarkable. Impression: Degenerative changes, as above. Reviewed, dictated and finalized at location . Impression: Degenerative changes, as above.
--- NOTE | ~2025-01-22 | XR_ITS ---
Left Hand Technique: PA, oblique, and lateral views were obtained. Clinical History: Arthritis Findings: No acute fracture or dislocation is seen. Osseous alignment is anatomic. There is advanced degenerative change of the interphalangeal joint of the thumb and fourth DIP joint. There are mild de generative changes the remaining interphalangeal joints.. Soft tissues are unremarkable. Impression: Osteoarthritis, predominantly involving the interphalangeal joints, as detailed above. Reviewed, dictated and finalized at location M. Impression: Osteoarthritis, predominantly involving the interphalangeal joints, as detailed above.
== END 2025-01-22 10:14 | disposition home or self-care (01) ==
LOC: ANHIMG 10:19
PROVIDERS: PCP Internal Medicine; Visit Provider Plastic Surgery
DX: M19.041 Primary osteoarthritis, right hand (principal); M19.042 Primary osteoarthritis, left hand
CPT/HCPCS: 73130

== ENCOUNTER 2025-04-12 09:14 | Outpatient (CLI) | payer MEDICARE, OTHER, SELFPAY ==
[2025-04-12 09:43] LABS: Basophils Percent Auto 0.3 % (0.2-1.2); Eosinophils Absolute Auto 0.1 K/mm3 (0-0.3); Eosinophils Percent Auto 1.5 % (0-4.4); Hematocrit 42.9 % (42.0-52.0); Hemoglobin 13.7 g/dL (14.0-18.0); Immature Granulocyte Absolute 0.02 K/mm3 (0.00-0.031); Immature Granulocyte Percent A 0.5 % (0-0.5); Lymphocytes Absolute Auto 1.11 K/mm3 (0.9-3.2); Lymphocytes Percent Auto 28.5 % (18.3-44.2); Mean Corpuscular HGB Conc 31.9 g/dl (32-36); Mean Corpuscular Hemoglobin 28.3 pg (26-34); Mean Corpuscular Volume 88.6 fl (80-100); Mean Platelet Volume 9.3 fl (7.4-10.4); Monocytes Absolute Auto 0.5 K/mm3 (0.1-0.6); Monocytes Percent Auto 12.1 % (2.6-8.5); Neutrophils Absolute Auto 2.2 K/mm3 (1.3-6.7); Neutrophils Percent Auto 57.1 % (45.5-73.1); Platelet Count Result 265 k/mm3 (150-375); Red Blood Count 4.84 M/mm3 (4.6-6.20); Red Cell Distribution Width 13.5 % (11.5-14.5); White Blood Count 3.9 K/mm3 (4.5-10.0)
--- OUTSIDE RECORDS SUMMARY | 2025-04-12 09:55 | XMS_ITS | Patient Health Record ---
Author Organization [facility] Address [address] [place], [place] [id number] Care Team Providers Care Compounder Name Role Phone CALVIN GAVIN Unavailable [phone] Maikol Gomez Unavailable Unavailable Allergies No Known Allergies Reason For Referral No Information Medications Medication SIG (Take, Route, Frequency, Duration) Notes Start Date End Date Status 5 ML metoprolol tartrate 1 MG/ML Injection INTRAVENOUS 5 ML metoprolol tartrate 1 MG/ML InjectionOriginal Medication5 ML metoprolol tartrate 1 MG/ML Injection *Reorder from [employer] for eRx and Interaction Alerts* 02/14/2015 Active Immunizations Vaccine Route Administration Date Status Comme nts Influenza, high dose seasonal Unknown 09/07/2023 Admini stered Plan Of Treatment No Information Insurance Providers Payer Name Payer Address Payer Phone Subscriber Number Group Number Insured Name Patient Relationship to Insured Coverage Start Date Coverage End Date TRISTEN Nance / [employer] [address] [place], [place] [id number] CESILIA DUMAS Spouse - patient is the spouse of the insured Medical (General) History Medical History History ICD Code acid reflux kidney stones Sleep apnea hypertension Surgical History Surgery Date(Month/Year) Plantar Facsiitis 2018
--- OUTSIDE RECORDS SUMMARY | 2025-04-12 09:55 | XMS_ITS ---
Author Organization [facility] Address [address] [place], [place] [id number] Care Team Providers Care Manager Of Disaster Recovery Name Role Phone CALVIN KOCH Unavailable [phone] Maikol Gomez Unavailable Unavailable REASON FOR VISIT Fracture check with x-rays Encounters Encounter Location Date Provider Diagnosis [facility] [address] [place], [place] [id number] 12/21/2023 CALVIN KOCH Plan Of Treatment No Information Progress Notes * MONA DUMAS WDOB:[birth year] (64 yo M)Acc No.[id number]:12/21/2023 Patient: MONA SILVESTRE Provider: Doe Koch DPM :1960 A ge:63 Y S ex:Male Date:12/21/2023 Address:[address] [place], [place] [id number] Subjective: * Chief Complaints: * 1 . Fracture check with x-rays. * Medical History: Objective: * Vitals: Assessment: Plan: * Treatment: * Billing Information: * Visit Code: * Procedure Codes: * Electronic signature of CALVIN KOCH DPM on 04/12/2025 at 09:55 AM CDT Sign off status: Pending * Provider: Doe Koch DPM Date: 0 12/21/2023 Generated for Lyn silvestre/Akhil/eTborisitting on: 0 04/12/2025 09:55 AM CDT
--- OUTSIDE RECORDS SUMMARY | 2025-04-12 09:55 | XMS_ITS | Clinical Summary ---
Author Organization [facility] Address [address] [place] [phone] Care Team Providers Care Closet Builder Name Role Phone Maikol Gomez MD Primary Care Provider +1- [phone] Allergies No known active allergies Medications metoprolol XL (TOPROL-XL) 50 mg extended release tablet TAKE 1 TABLET BY MOUTH EVERY DAY 04/09/2020 Active omeprazole OTC (PriLOSEC OTC) 20 mg EC tablet Take 1 tablet by mouth daily Active sildenafiL (VIAGRA) 100 mg tablet Take 100 mg by mouth as needed 06/27/2019 Active amLODIPine (NORVASC) 10 mg tablet TAKE 1 TABLET BY MOUTH EVERY DAY 04/09/2020 Active Active Problems No known active problems Medical History Medical History Date Comments Hypertension Family History Medical History Relation Name Comments Cancer Brother Stroke Father Relation Name Status Comments Brother Father Social History Tobacco Use Types Packs/Day Years Used Date Smoking Tobacco: Former Smokeless Tobacco: Never Tobacco Cessation:Counseling Given: No Alcohol Use Standard Drinks/Week Comments Never 0 (1 standard drink = 0.6 oz pur e alcohol) AUDIT-C Answer Date Recorded Q1: How often do you have a drink containing alc ohol? Never 12/10/2020 Average Number of Drinks Not on file Frequency of Binge Drinking Not on file 12/2020 Personal Safety Answer Date Recorded Getting School Help Needed Not on file 01/21 Sex and Gender Information Value Date Recorded Sex Assigned at Not on file Legal Sex Male 6:12 AM DOOR BUILDER Gender Identity Not on file Sexual Orientation Not on file Obstetrics History Last Filed Vital Signs Vital Sign Reading Time Taken Comments Blood Pressure 155/87 12/10/2020 12:51 PM DOOR BUILDER Pulse 69 12/10/2020 12:51 PM DOOR BUILDER Temperature 37.1 C (98.7 F) 12/10/2020 12:51 PM DOOR BUILDER Respiratory Rate - - Oxygen Saturation - - Inhaled Oxygen Concentration - - Weight 91.1 kg (200 lb 14.4 oz) 021 12:51 PM DOOR BUILDER Height 170.2 cm (5' 7) 12/10/2020 12:5 1 PM DOOR BUILDER Body Mass Index 31.47 12/10/2020 12:51 PM DOOR BUILDER Plan of Treatment Not on file Insurance [facility] Care Teams Closet Builder Relationship Specialty Start Date End Date Maikol Gomez MD [address] [facility] [address] [place], [place] [id number] PCP - General Internal Medicine 10/16/20
--- OUTSIDE RECORDS SUMMARY | 2025-04-12 09:55 | XMS_ITS | Referral Summary ---
Author Organization [facility] Address [address] [place] [phone] Care Team Providers Care Fill Manager Name Role Phone Maikol Gomez MD Primary Care Provider +1- [phone] Allergies No known active allergies Medications metoprolol [...] Active Active Problems No known active problems Social History Tobacco Use Types Packs/Day Years Used Date Smoking Tobacco: Former Smokeless Tobacco: Never Tobacco Cessation:Counseling Given: No Alcohol Use Standard Drinks/Week Comments Never 0 (1 standard drink = 0.6 oz pur e alcohol) AUDIT-C Answer Date Recorded Q1: How often do you have a drink containing alc ohol? Never 12/10/2020 Average Number of Drinks Not on file 021 Frequency of Binge Drinking Not on file 12/2020 Personal Safety Answer Date Recorded Getting School Help Needed Not on file 01/21 Sex and Gender Information Value Date Recorded Sex Assigned at Not on file Legal Sex Male 6:12 AM APPLE SOLUTIONS CONSULTANT Gender Identity Not on file Sexual Orientation Not on file Last Filed Vital Signs Vital Sign Reading Time Taken Comments Blood Pressure 155/87 12/10/2020 12:51 PM APPLE SOLUTIONS CONSULTANT Pulse 69 12/10/2020 12:51 PM APPLE SOLUTIONS CONSULTANT Temperature 37.1 C (98.7 F) 12/10/2020 12:51 PM APPLE SOLUTIONS CONSULTANT Respiratory Rate - - Oxygen Saturation - - Inhaled Oxygen Concentration - - Weight 91.1 kg (200 lb 14.4 oz) 021 12:51 PM APPLE SOLUTIONS CONSULTANT Height 170.2 cm (5' 7) 12/10/2020 12:5 1 PM APPLE SOLUTIONS CONSULTANT Body Mass Index 31.47 12/10/2020 12:51 PM APPLE SOLUTIONS CONSULTANT Plan of Treatment Not on file Insurance [facility] HMO/PPO Address: [address] [phone] Care Teams Fill Manager Relationship Specialty Start Date End Date Maikol Gomez MD [address] [address] PCP - General Internal Medicine 10/16/20
[2025-04-12 10:57] LABS: Alanine Aminotransferase 35 U/L (6-50); Albumin Level 4.3 g/dL (3.5-5.1); Alkaline Phosphatase 102 U/L (38-126); Anion Gap 6 mmol/L (4-12); Aspartate Amino Transferase 33 U/L (17-59); Bilirubin,Total 0.4 mg/dL (0.2-1.3); Blood Urea Nitrogen 23 mg/dL (9-20); Calcium 9.1 mg/dL (8.4-10.2); Carbon Dioxide 26 mmol/L (22-30); Chloride 110 mmol/L (98-107); Cholesterol 167 mg/dL (0-200); Estimated Glomerular Filt Rate > 60; Glucose 110 mg/dL (65-110); HDL Direct 47 mg/dL; LDL Cholesterol Direct 82 mg/dL; Potassium 4.3 mmol/L (3.4-5.0); Sodium 142 mmol/L (137-145); Triglycerides 119 mg/dL (<150)
[2025-04-12 11:12] LABS: Hemoglobin A1C 5.4 % (<5.7)
[2025-04-12 11:13] LABS: Hepatitis C Virus Antibody Negative (Negative)
== END 2025-04-12 09:15 | disposition home or self-care (01) ==
PROVIDERS: PCP Internal Medicine; Visit Provider Internal Medicine
DX: E53.8 Deficiency of other specified B group vitamins (principal); Z11.59 Encounter for screening for other viral diseases; E78.5 Hyperlipidemia, unspecified; D64.9 Anemia, unspecified; R73.9 Hyperglycemia, unspecified; I10 Essential (primary) hypertension
CPT/HCPCS: 36415; 80053; 80061; 82607; 83036; 85025; 86803

== ENCOUNTER 2025-04-12 10:09 | Outpatient (CLI) | payer MEDICARE, OTHER, SELFPAY ==
--- NOTE | ~2025-04-12 | US_ITS ---
EXAMINATION: US aorta [facility] DATE: 04/12/2025 12:42 CDT INDICATION: Abdominal aortic aneurysm screening TECHNIQUE: Grayscale, color Doppler, and pulsed Doppler images of the aorta and common iliac arteries were obtained. COMPARISON: None. FINDINGS: The proximal aorta measures 2.9 cm greatest sagittal dimension. The mid aorta measures 2.4 cm greates t sagittal dimension. The distal aorta measures 2.3 cm greatest sagittal dimension. The iliac arterie s are obscured by bowel gas. IMPRESSION: 1. Normal caliber aorta without aneurysm. Reviewed, dictated and finalized at location A.
== END 2025-04-12 10:10 | disposition home or self-care (01) ==
LOC: MICIMG 10:10
PROVIDERS: PCP Internal Medicine; Visit Provider Internal Medicine
DX: Z87.891 Personal history of nicotine dependence (principal)
CPT/HCPCS: 76706

== ENCOUNTER 2025-05-14 09:05 | Outpatient (CLI) | payer MEDICARE, OTHER, SELFPAY ==
--- NOTE | ~2025-05-14 | XR_ITS ---
EXAM/ PROCEDURE: XR shoulder LT min 2V - 05/14/2025 9:15 CDT HISTORY: 64 years old Male with M25.512 - Pain in left shoulder laterally X 2 MONTHS COMPARISON: None available TECHNIQUE: Four view(s) FINDINGS/ IMPRESSION: There are no fractures or dislocations.Joint space narrowing, subchondral sclerosis, subchondral cyst formation and osteophyte formation, compatible with mild osteoarthritis. Reviewed, dictated and finalized at location A.
--- OUTSIDE RECORDS SUMMARY | 2025-05-14 09:19 | XMS_ITS | Clinical Summary ---
Author Organization [facility] Address [address] [place] [phone] Care Team Providers Care Escrow Clerk Name Role Phone Maikol Gomez MD Primary Care Provider +1- [phone] Allergies No known active allergies Medications metoprolol [...] on file Legal Sex Male 6:12 AM FIELD REPORTER Gender Identity Not on file Sexual Orientation Not on file Obstetrics History Last Filed Vital Signs Vital Sign Reading Time Taken Comments Blood Pressure 155/87 12/10/2020 12:51 PM FIELD REPORTER Pulse 69 12/10/2020 12:51 PM FIELD REPORTER Temperature 37.1 C (98.7 F) 12/10/2020 12:51 PM FIELD REPORTER Respiratory Rate - - Oxygen Saturation - - Inhaled Oxygen Concentration - - Weight 91.1 kg (200 lb 14.4 oz) 021 12:51 PM FIELD REPORTER Height 170.2 cm (5' 7) 12/10/2020 12:5 1 PM FIELD REPORTER Body Mass Index 31.47 12/10/2020 12:51 PM FIELD REPORTER Plan of Treatment Not on file Insurance [facility] HMO/PPO Address: [address] [phone] Care Teams Escrow Clerk Relationship Specialty Start Date End Date Maikol Gomez MD [address] [facility] [address] [place], [place] [id number] PCP - General Internal Medicine 10/16/20
--- OUTSIDE RECORDS SUMMARY | 2025-05-14 09:19 | XMS_ITS | Referral Summary ---
Author Organization [facility] Address [address] [place] [phone] Care Team Providers Care Manager Hardware Name Role Phone Maikol Gomez MD Primary Care Provider +1- [phone] Allergies No known active allergies Medications metoprolol [...] on file Legal Sex Male 6:12 AM MEAT PRESS OPERATOR Gender Identity Not on file Sexual Orientation Not on file Last Filed Vital Signs Vital Sign Reading Time Taken Comments Blood Pressure 155/87 12/10/2020 12:51 PM MEAT PRESS OPERATOR Pulse 69 12/10/2020 12:51 PM MEAT PRESS OPERATOR Temperature 37.1 C (98.7 F) 12/10/2020 12:51 PM MEAT PRESS OPERATOR Respiratory Rate - - Oxygen Saturation - - Inhaled Oxygen Concentration - - Weight 91.1 kg (200 lb 14.4 oz) 021 12:51 PM MEAT PRESS OPERATOR Height 170.2 cm (5' 7) 12/10/2020 12:5 1 PM MEAT PRESS OPERATOR Body Mass Index 31.47 12/10/2020 12:51 PM MEAT PRESS OPERATOR Plan of Treatment Not on file Insurance [facility] HMO/PPO Address: [address] [phone] Care Teams Manager Hardware Relationship Specialty Start Date End Date Maikol Gomez MD [address] [address] PCP - General Internal Medicine 10/16/20
--- OUTSIDE RECORDS SUMMARY | 2025-05-14 09:19 | XMS_ITS ---
Author Organization [facility] Address [address] [place], [place] [phone] Care Team Providers Care Holter Scanning Technician Name Role Phone CALVIN KOCH Unavailable [phone] Maikol Gomez Unavailable Unavailable REASON FOR VISIT Fracture check with x-rays Encounters Encounter Location Date Provider Diagnosis [facility] [address] [place], [place] [id number] 12/21/2023 CALVIN KOCH Plan Of Treatment No Information Progress Notes * MONA DUMAS WDOB:[birth year] (64 yo M)Acc No.[id number]:12/21/2023 Patient: MONA SILVESTRE Provider: Doe Koch DPM :1960 A ge:63 Y S ex:Male Date:12/21/2023 Address:[address] [place], [place] [id number] Subjective: * Chief Complaints: * 1 . Fracture check with x-rays. * Medical History: Objective: * Vitals: Assessment: Plan: * Treatment: * Billing Information: * Visit Code: * Procedure Codes: * Electronic signature of CALVIN KCOH DPM on 05/14/2025 at 09:18 AM CDT Sign off status: Pending * Provider: Doe Koch DPM Date: 12/21/2023 Generated for Lyn silvestre/Akhil/eTborisitting on: 0 05/14/2025 09:18 AM CDT
== END 2025-05-14 09:06 | disposition home or self-care (01) ==
PROVIDERS: PCP Internal Medicine; Visit Provider Internal Medicine
DX: M25.512 Pain in left shoulder (principal)
CPT/HCPCS: 73030

== ENCOUNTER 2025-08-01 10:00 | Outpatient (RCR) | payer MEDICARE, OTHER, SELFPAY ==
--- NOTE | 2025-06-20 17:12 | OPREHPOC ---
Outpatient Therapy Plan of Care This is a Multidisciplinary Plan of Care that may contain components documented by all disciplines (PT, OT, and ST.) PT Problem 1 PT Problem #1 Knowledge Deficit PT Goal 1 Goal / Goal Update Patient to demonstrate independence with HEP for improved self-reliance of symptom management. Target Visit 5 PT Problem 2 PT Problem #2 Pain PT Goal 1 Goal / Goal Update 1. Patient to decrease subjective reports of pain at worst to <7/10 for improved ADL tolerance. 2. Patient to report 50% improvement in quantity and quality of sleep due to L shoulder pain. Target Visit 10 PT Problem 3 PT Problem #3 Impaired Range of Motion PT Goal 1 Goal / Goal Update 1. Pt to demonstrate an increase of L shoulder flexion AROM to >=160 deg to improve the ability to reach overhead. 2. Pt to demonstrate an increase of L shoulder ER functional reach to T2 to improve the ability to perform personal hygiene tasks Target Visit 10 PT Problem 4 PT Problem #4 Impaired Strength PT Goal 1 Goal / Goal Update Patient to demonstrate L shoulder strength >=5/5 for improved functional stability required for ADLs. Target Visit 10
--- NOTE | 2025-06-20 17:12 | PTOPEVAL1 ---
Assessment and note entered by Katharina Carlton PT Evaluation Information Assessment Status Evaluation ICD-10 Condition Codes (PT) Pain in left shoulder M25.512 Subjective Information Primary Complaint: Jones Shoulder Pain L>R History of current condition: Pt reports symptoms started over a month ago. He was trying to lift something when packing for a camping trip. His tried to lift and throw it to the L side and his L shoulder had a sharp pain. He has an ache in it most of the time and sharp when reaching/lifting or twisting his shoulder the wring way. He can lift with the R but has to guide with the L. He has an ache in the R shoulder but it is not too bad. He is R handed. Sxs made worse with: reaching, lifting, carrying, soreness at the end of the day Sxs improved with: arm above his head, Tylenol, icy/hot CLOF: weakness, inability to lift things, disrupted sleep, difficulty starting chainsaw PLOF: no limitations Reported Pain Level Pain Score 6: Self Report Additional Pain Score Comments elevates L shoulder above his head to get cramp/ ache to go away Assessment PT Clinical Summary Pt is a 64 year old male who presents to physical therapy with a primary complaint of L shoulder pain. Pt demonstrates L shoulder weakness, pain, decreased ROM, and decreased flexibility that limit their ability to perform ADLs. Pt will benefit from skilled physical therapy to address the above listed deficits and return to PLOF. HEP instructed and written handout provided, EX tolerated well with no adverse effects to note post-session. Pt was educated on importance of adherence to HEP. Pt was also educated on anatomy, prognosis, home modalities, and PT POC. Plan of Care PT Services Indicated Yes Treatment Frequency and 2x/wk for 10 sessions Duration These treatments will address the objective and functional deficits as defined above. The patient will be advanced safely and appropriately in order for the patient to progress towards his/her prior level of function. Additional exercises will be introduced and as well as a comprehensive home exercise program upon discharge, if needed, ?to ensure carryover of functional gains achieved in the clinic. This treatment plan has been reviewed and agreement upon by the patient.
--- NOTE | 2025-08-01 10:58 | OPREHPOC ---
Outpatient Therapy Plan of Care This is a Multidisciplinary Plan of Care that may contain components documented by all disciplines (PT, OT, and ST.) PT Problem 1 PT Problem #1 Knowledge Deficit PT Goal 1 Goal / Goal Update Patient to demonstrate independence with HEP for improved self-reliance of symptom management. 08-01-25 d/c goal met Target Visit 5 Progress Met PT Problem 2 PT Problem #2 Pain PT Goal 1 Goal / Goal Update 1. Patient to decrease subjective reports of pain at worst to <7/10 for improved ADL tolerance. 2. Patient to report 50% improvement in quantity and quality of sleep due to L shoulder pain. 08-01-25 d/c goals met Target Visit 10 Progress Met PT Problem 3 PT Problem #3 Impaired Range of Motion PT Goal 1 Goal / Goal Update 1. Pt to demonstrate an increase of L shoulder flexion AROM to >=160 deg to improve the ability to reach overhead. 2. Pt to demonstrate an increase of L shoulder ER functional reach to T2 to improve the ability to perform personal hygiene tasks 25 d/c goals met Target Visit 10 Progress Met PT Problem 4 PT Problem #4 Impaired Strength PT Goal 1 Goal / Goal Update Patient to demonstrate L shoulder strength >=5/5 for improved functional stability required for ADLs. 25 d/c goal met Target Visit 10 Progress Met
--- NOTE | 2025-08-01 10:58 | PTOPDC ---
Assessment and note entered by Gail Martinez, PT Assessment Status Discharge ICD-10 Condition Codes (PT) Pain in left shoulder M25.512 Subjective Information shoulder is about the same--uncomfortable with moving and lifting; have more range and mobility, sleeping better, but still giving me trouble; saw ortho PA- to continue therapy and return if want injection; therapy and stim have helped some; concerned about getting busier at work due to seasonal events and more work with lifting and arm . agree with d/c from PT and to continue with exercises at home. Reported Pain Level Pain Score Self Report Additional Pain Score Comments pain range in the past week 0-5/10; lateral GH joint- dull pain, will get sharp with lifting and overhead work; decrease pain: rest, hot shower, advil PRN; with sleeping- able to sleep through the night take tylenol arthritis for hands Assessment PT Clinical Summary Johny has received 10 PT sessions. He has improved in all areas and today's assessment: pain rating 0-5/10 in lateral shoulder ; less reports of sharp pain; self assessment with Quick DASH rating of 52% limitation in activity level; sleep is not disrupted due to pain; active ROM of L shoulder: flexion 165', abduction 165'; IR- reach behind back, fingers to inferior scapula and ER- reach to back of head, fingers to cervical spine; education completed for HEP and posture/body mechanics. functional strength testing: L UE with 5 reps: shoulder flexion to ~ 90' with 5# shoulder abduction to ~ 90' with 5# shoulder ER with elbow at side with 5# one hand/bucket lift: increase to max weight to 20# bilateral UE box lift: increase to 40#, which is most he lifts at work; 3 reps without any pain increase The goals were achieved. Discharge PT. He is to continue with his HEP, monitor pain and rest shoulder as able. He is to follow up with ortho if he continues to have pain or increase in shoulder issues. Plan of Care PT Services Indicated No
== END 2025-08-01 12:59 | disposition home or self-care (01) ==
LOC: ANHPT 10:00
PROVIDERS: PCP Internal Medicine; Visit Provider Internal Medicine
DX: M25.512 Pain in left shoulder (principal)
CPT/HCPCS: 97014; 97110; 97140; 97161; 97530; G0283

== ENCOUNTER 2025-08-21 07:12 | Outpatient (CLI) | payer MEDICARE, OTHER, SELFPAY ==
--- NOTE | ~2025-08-21 | MR_ITS ---
EXAMINATION: MR shoulder LT wo con DATE: 08/21/2025 07:40 INDICATION: Left shoulder pain TECHNIQUE: Magnetic resonance imaging (MRI) of the left shoulder was performed without intravenous contrast. Sequences included axial PD-weighted FS FSE, coronal oblique PD-weighted FS FSE, coronal oblique T2-weighted FS FSE, sagittal PD-weighted FS FSE, and sagittal T1-weighted SE. COMPARISON: Left shoulder radiographs dated 05/14/2025 FINDINGS: Coracoacromial arch: The acromion undersurface is flat in morphology (type I). Tiny enthesopathic ossicle at the acromial insertion of the otherwise normal coracoacromial ligament. Moderate acromioclavicular osteoarthritis. Rotator cuff: Mild supraspinatus and moderate infraspinatus tendinopathy. There is a very small intrasubstance tear at the footplate of the conjoined portion of the tendon which measures 3 mm AP and involves approximately one half of the tendon thickness. There is a second very small intrasubstance tear measuring 2 mm AP and involving less than sign one third of the tendon thickness along the more posterior middle facet footplate of the infraspinatus tendon. The teres minor tendon is normal. Mild subscapularis tendinopathy with partial thickness articular sided tear which extends up to 10 mm craniocaudally along the medial half of the superior facet footplate of the tendon. Normal rotator cuff muscle bulk and signal. Biceps tendon, glenoid labrum and glenohumeral cartilage: Long head of the biceps tendon is normal. There is accessory head of the long head biceps tendon which extends to the anterior margin of the superior facet where it appears to merge the anterior fibers of the supraspinatus tendon. There is a superior, anterior to posterior tear of the glenoid labrum (SLAP tear) exam from the 12:00 position of the superior labrum to the 10:30 position of the posterior superior labrum. Glenohumeral cartilage is normal. Fluid: Physiologic amount of fluid in the glenohumeral joint and biceps tendon sheath. No loose osteochondral bodies. Mild increased fluid signal in the subacromial/subdeltoid bursa consistent with mild bursitis. Bones: Bone alignment is normal. No fracture or pathologic marrow replacing process. IMPRESSION: 1. Mild to moderate rotator cuff tendinopathy with moderate severity partial- thickness articular sided tear involving the cephalad two thirds of the lesser tuberosity footplate of the subscapularis tendon and very small partial- thickness intrasubstance tears along the greater tuberosity footplate of the conjoined supraspinatus and infraspinatus tendons and more posterior infraspinatus tendon. 2. SLAP tear of the superior posterior superior glenoid labrum. 3. Moderate acromial clavicular osteoarthritis with mild underlying subacromial/subdeltoid bursitis. Reviewed, dictated and finalized at location A. IMPRESSION: 1. Mild to moderate rotator cuff tendinopathy with moderate severity partial-th ickness articular sided tear involving the cephalad two thirds of the lesser tu berosity footplate of the subscapularis tendon and very small partial-thickness intrasubstance tears along the greater tuberosity footplate of the conjoined s upraspinatus and infraspinatus tendons and more posterior infraspinatus tendon. 2. SLAP tear of the superior posterior superior glenoid labrum. 3. Moderate acromial clavicular osteoarthritis with mild underlying subacromial /subdeltoid bursitis.
== END 2025-08-21 07:13 | disposition home or self-care (01) ==
LOC: MICIMG 07:12
PROVIDERS: PCP Internal Medicine; Visit Provider Nurse Practitioner Family
DX: M19.012 Primary osteoarthritis, left shoulder (principal)
CPT/HCPCS: 73221